=== PATIENT | female | born 1990 | race Hispanic/Latino ===

== ENCOUNTER 2024-05-22 16:16 | Emergency (ER) | payer SELFPAY ==
[~2024-05-22] VITALS: Ht 167.6 cm; Wt 80.3 kg
[2024-05-22 17:10] VITALS: TEMP 98
[2024-05-22] MEDS: ONDANSETRON HCL INJ 2MG/ML 2ML 2 MG/ML VIAL IV PRN (17:15)
[2024-05-22] MEDS: KETOROLAC TROMETHAMINE 30 MG/ML VIAL IV STA (17:15)
[2024-05-22] MEDS: FENTANYL CITRATE/PF 100MCG/2 ML INJ IV PRN (17:16)
[2024-05-22] MEDS: SODIUM CHLORIDE 0.9% 1000ML 1,000 ML IV STA (17:18)
[2024-05-22 17:20] LABS: BASOPHILS % 0.2 % (0.0-1.0); EOSINOPHILS % 0.5 % (0.0-6.0); HEMATOCRIT 40.1 % (34.2-44.1); HEMOGLOBIN 12.6 g/dL (12.0-16.0); LYMPHOCYTES # (AUTO) 1.7 (1.0-3.2); LYMPHOCYTES % 20.4 % (18.0-39.1); MEAN CORPUSCULAR HGB CONC 31.4 g/dL (31-35); MEAN CORPUSCULAR VOLUME 92.4 fL (81-99); MONOCYTES # (AUTO) 0.6 (0.2-0.8); MONOCYTES % 6.6 % (4.4-11.3); NEUTROPHILS % 72.1 % (38.7-80.0); PLATELET COUNT 261 x10e3/uL (140-360); RED BLOOD COUNT 4.34 x10e6/uL (3.6-5.1); RED CELL DISTRIBUTION WIDTH 13.5 % (11.7-14.4); WHITE BLOOD COUNT 8.32 x10e3/uL (4.8-10.8)
[2024-05-22 17:43] LABS: ALBUMIN 4.2 g/dL (3.5-5.0); ALBUMIN/GLOBULIN RATIO 1.4 (0.8-2.0); ANION GAP 18.2 mmol/L (8-16); BILIRUBIN,TOTAL 1.1 mg/dL (0.2-1.2); CALCIUM 9.2 mg/dL (8.4-10.2); CREATININE, SERUM 0.81 mg/dL (0.57-1.11); TOTAL PROTEIN 7.1 g/dL (6.5-8.1)
[2024-05-22 17:46] LABS: POTASSIUM 3.2 mmol/L (3.5-5.1)
[2024-05-22] MEDS ORDERED: IOPAMIDOL 370 MG/ML 100 ML INFUS..BTL INJ ONE (18:21)
[2024-05-22 18:28] LABS: CLARITY,URINE CLEAR (CLEAR); COLOR,URINE YELLOW (YELLOW); GLUCOSE, URINE NEGATIVE (NEGATIVE); KETONES,URINE NEGATIVE (NEGATIVE); LEUKOCYTE ESTERASE ,URINE NEGATIVE (NEGATIVE); NITRITE,URINE NEGATIVE (NEGATIVE); PH,URINE 7 (5 - 7); PROTEIN,URINE DIPSTICK 1+ (NEGATIVE); URINE UROBILINOGEN 0.2 mg/dL (0.2 - 1)
[2024-05-22 18:29] LABS: BILIRUBIN,URINE NEGATIVE (NEGATIVE)
[2024-05-22 18:30] LABS: BACTERIA,URINE FEW /HPF; EPITHELIAL CELLS,URINE FEW /LPF; MUCUS,URINE FEW (RARE); RBC,URINE 0-5 /HPF (0-5); WBC,URINE (MAN) 0-5 /HPF (0-5)
[2024-05-22] MEDS: Morphine 4mg INJECTION 4 MG/ML INJ IV ONE (19:03)
[2024-05-22] MEDS ORDERED: ONDANSETRON ODT4 MG SL (19:27)
[2024-05-22] MEDS ORDERED: HYDROCODON-ACE1 EA12 PO (19:27)
[2024-05-22] MEDS ORDERED: CEFDINIR300 MG PO (19:27)
[2024-05-22] MEDS ORDERED: FLOMAX0.4 MG PO (19:27)
[2024-05-22] MEDS ORDERED: KETOROLAC TROME10 MG PO (19:27)
[2024-05-22 19:38] VITALS: PULSE 82; RESP 16; O2SAT 100
[2024-05-22 19:40] VITALS: TEMP 98.1
== END 2024-05-22 19:46 | disposition home or self-care (01) ==
LOC: ER 16:39
DX: R10.31 Right lower quadrant pain (principal); N13.2 Hydronephrosis with renal and ureteral calculous obstruction
CPT/HCPCS: 36415; 74177; 76830; 76856; 80053; 81001; 84702; 85025; 99284; J1885; J2270; J2405; J3010; J7030; Q9967